=== PATIENT | female | born 1965 | race African-American/Black ===

== ENCOUNTER 2016-12-11 21:35 | Emergency (ER) | payer OTHER ==
[~2016-12-11] VITALS: Ht 152.4 cm; Wt 99.8 kg
[~2016-12-11 21:35] MED LIST: CIPR7.5D EACH EAR; FAMO-63 PO; HYDR-971 PO; NAPR500T4 PO; PRED50TA PO; TRAM-48 PO
[2016-12-11 22:00] VITALS: BP 163/83
[2016-12-11] MEDS ORDERED: HYDR25TA PO (22:10)
[2016-12-11] MEDS ORDERED: MUPI15CR TP (22:10)
--- NOTE | 2016-12-11 22:10 | PHYS DOC ---
Past Medical History Past Medical History: No Pertinent History Additional Past Medical Histor: chronic l knee pain, Past Surgical History: No Surgical History Alcohol Use: None Drug Use: None Adult General Chief Complaint Chief Complaint: INSECT BITE HPI HPI Patient is a 51 year old female who presents with insect bite to the left lower extremity that she noted today. She states she started having itching yesterday. Patient denies any fever. Review of Systems Review of Systems Constitutional: Denies fever or chills [] Musculoskeletal: Denies back pain or joint pain [] Integument: Insect bite to the left lower extremity Neurologic: Denies headache, focal weakness or sensory changes [] Current Medications Current Medications Current Medications Medications (Trade) Dose Ordered Sig/Ayesha Start Time Stop Time Status Last Admin Dose Admin Diphtheria/ Tetanus/Acell Pertussis (Boostrix) 0.5 ml ONCE ONCE 12/11/16 23:00 12/11/16 23:01 Allergies Allergies Allergies Coded Allergies Type Severity Reaction Last Updated Verified No Known Drug Allergies 05/24/14 No Physical Exam Physical Exam Constitutional: Well developed, well nourished, no acute distress, non-toxic appearance. [] Skin: Warm, dry, left lateral lower extremity with a blister approximately 2 x 2 centimeters. There is no erythema to the area. I drained the blister in the ED. Back: No tenderness, no CVA tenderness. [] Extremities: No tenderness, no cyanosis, no clubbing, ROM intact, no edema. [] Neurologic: Alert and oriented X 3, normal motor function, normal sensory function, no focal deficits noted. [] Psychologic: Affect normal, judgement normal, mood normal. [] Current Patient Data Vital Signs Vital Signs Date Time Temp Pulse Resp B/P (MAP) Pulse Ox O2 Delivery O2 Flow Rate FiO2 12/11/16 22:00 98.3 103 18 99 Room Air 98.3 EKG EKG [] Radiology/Procedures Radiology/Procedures Indication: LLE blister Procedure: The patient was positioned appropriately. Local anesthesia was N/A. An incision was then made over the apex of the lesion with an 18 gauge needle and large amount of clear material was expressed. The drainage cavity was irrigated and covered with sterile gauze. The patients tetanus status updated as needed. The patient tolerated the procedure well. Complications: none.[] Course & Med Decision Making Course & Med Decision Making Pertinent Labs and Imaging studies reviewed. (See chart for details) Patient is in the ED with insect bite to the left lower extremity that has formed a big blister. I drained the blister in the ED. She refused Tetanus. She was discharged with Bactroban cream and Atarax for itching. Follow up with her own doctor in one week. Dragon Disclaimer Dragon Disclaimer This electronic medical record was generated, in whole or in part, using a voice recognition dictation system. Departure Departure Impression: Primary Impression: Insect bite Disposition: HOME, SELF-CARE Condition: STABLE Referrals: AARON COOLEY MD (PCP) follow up in one week Patient Instructions: Insect Bite, [id number] Additional Instructions: You were seen for an insect bite to the left lower extremity. Keep the area clean and dry. Apply the cream provided as prescribed. Follow-up with your doctor in one week. Scripts Mupirocin Calcium (BACTROBAN CREAM) 15 Gm Cream..g. 1 FLORIAN TP TID, #30 GM Prov: CASI HERNANDEZ APRN 12/11/16 Hydroxyzine Hcl (HYDROXYZINE HCL) 25 Mg Tablet 1 TAB PO TID, #30 TAB Prov: CASI HERNANDEZ APRN 12/11/16 Problem Qualifiers Primary Impression: Insect bite Encounter type: initial encounter Qualified Codes: W57.XXXA - Bitten or stung by nonvenomous insect and other nonvenomous arthropods, initial encounter CASI HERNANDEZ APRN Dec 11, 2016 22:10
[2016-12-11] MEDS ORDERED: DIPHTH,PERTUSS(ACELL),TET TOX 0.5 ML DISP.SYRIN. VAX IM ONE (23:00)
== END 2016-12-11 22:34 | disposition home or self-care (01) ==
LOC: ER 21:35
DX: S80.862A Insect bite (nonvenomous), left lower leg, initial encounter (principal); G89.29 Other chronic pain; W57.XXXA Bitten or stung by nonvenomous insect and other nonvenomous arthropods, initial encounter; Y93.89 Activity, other specified; Y99.8 Other external cause status; Y92.89 Other specified places as the place of occurrence of the external cause
CPT/HCPCS: 10060; 99283-25

== ENCOUNTER 2017-07-17 23:37 | Emergency (ER) | payer OTHER ==
[2017-07-18 00:02] LABS: POC GLUCOSE 130 mg/dL (70-99)
== END 2017-07-18 00:19 | disposition home or self-care (01) ==
LOC: ER 23:37
DX: B35.4 Tinea corporis (principal); J45.909 Unspecified asthma, uncomplicated; E03.9 Hypothyroidism, unspecified; F17.210 Nicotine dependence, cigarettes, uncomplicated
CPT/HCPCS: 82962; 99283

== ENCOUNTER 2020-05-13 17:03 | Emergency (ER) | payer OTHER ==
[~2020-05-13] VITALS: Ht 162.6 cm; Wt 95.2 kg
[~2020-05-13 17:03] MED LIST changes: +FLUC150T PO; +HYDR-3164 PO; -HYDR-971 PO; +HYDR25TA PO; +MUPI15CR TP; +NAPR-514 PO; -NAPR500T4 PO; +NYST15CR TP
[2020-05-13 17:45] VITALS: BP 130/76
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
[2020-05-13] MEDS ORDERED: CYCL10TA2 PO (19:35)
[2020-05-13] MEDS ORDERED: HYDR-2761 PO (19:35)
[2020-05-13] MEDS ORDERED: CYCLOBENZAPRINE 10 MG TABLET. PO ONE (19:45)
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
== END 2020-05-13 20:01 | disposition home or self-care (01) ==
LOC: ER 17:03
DX: S29.012A Strain of muscle and tendon of back wall of thorax, initial encounter (principal); S16.1XXA Strain of muscle, fascia and tendon at neck level, initial encounter; J45.909 Unspecified asthma, uncomplicated; E03.9 Hypothyroidism, unspecified; F17.200 Nicotine dependence, unspecified, uncomplicated; V89.2XXA Person injured in unspecified motor-vehicle accident, traffic, initial encounter; Y93.89 Activity, other specified; Y92.413 State road as the place of occurrence of the external cause; Y99.8 Other external cause status
CPT/HCPCS: 72040; 72072; 81025; 99284

== ENCOUNTER 2020-05-14 10:43 | Emergency (ER) | payer OTHER ==
[~2020-05-14] VITALS: Ht 152.4 cm; Wt 98.9 kg
[~2020-05-14 10:43] MED LIST changes: +CYCL10TA2 PO; +HYDR-2761 PO
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
[2020-05-14 12:53] VITALS: BP 122/70
== END 2020-05-14 13:03 | disposition home or self-care (01) ==
LOC: ER 10:43
DX: M54.2 Cervicalgia (principal); R51.9 Headache, unspecified; G89.11 Acute pain due to trauma; J45.909 Unspecified asthma, uncomplicated; E03.9 Hypothyroidism, unspecified; F17.200 Nicotine dependence, unspecified, uncomplicated; V49.59XA Passenger injured in collision with other motor vehicles in traffic accident, initial encounter; Y92.488 Other paved roadways as the place of occurrence of the external cause; Y93.89 Activity, other specified; Y99.8 Other external cause status
CPT/HCPCS: 70450; 72125; 99285-25

== ENCOUNTER 2021-02-03 18:45 | Emergency (ER) | payer OTHER ==
[~2021-02-03] VITALS: Ht 152.4 cm; Wt 99.5 kg
[~2021-02-03 18:45] MED LIST changes: +CYCL10TA19 PO; -CYCL10TA2 PO
[2021-02-03 19:10] VITALS: BP 97/82
--- NOTE | 2021-02-03 19:56 | PHYS DOC ---
Past Medical History Past Medical History: Asthma, Hypothyroid, Other Additional Past Medical Histor: ALOPECIA, Lt knee pain, PSOARISIS Past Surgical History: No Surgical History Smoking Status: Current Every Day Smoker Alcohol Use: None Drug Use: None General Adult EDM: Chief Complaint: SKIN PROBLEM HPI: HPI: Patient is a 55 year old female who presents to the ED today complaining of chronic psoriasis to bilateral hands, she states she has had it for the last 4 years. She states it was covering 90% of her body but has been cleared slowly with the methotrexate. Patient states she is looking for something else to use on her hands. She states that cracking. She states she has previously used beclomethasone which helped but she wants something else Review of Systems: Review of Systems: Constitutional: Denies fever or chills. [] Musculoskeletal: Denies back pain or joint pain. [] Integument: Reports psoriasis on her hands Neurologic: Denies headache, focal weakness or sensory changes. [] Psychiatric: Denies depression or anxiety. [] Heart Score: C/O Chest Pain: N/A Risk Factors: Risk Factors: DM, Current or recent (<one month) smoker, HTN, HLP, family history of CAD, obesity. Risk Scores: Score 0 - 3: 2.5% MACE over next 6 weeks - Discharge Home Score 4 - 6: 20.3% MACE over next 6 weeks - Admit for Clinical Observation Score 7 - 10: 72.7% MACE over next 6 weeks - Early Invasive Strategies Allergies: Allergies: Allergies Coded Allergies Type Severity Reaction Last Updated Verified No Known Drug Allergies 05/24/14 No Physical Exam: PE: Constitutional: Well developed, well nourished, no acute distress, non-toxic appearance. [] Skin: -Monegasque female with patchy peeling skin on bilateral palms and wrist. Similar lesions noted on the elbows lesions consistent with psoriasis Back: No tenderness, no CVA tenderness. [] Extremities: No tenderness, no cyanosis, no clubbing, ROM intact, no edema. [] Neurologic: Alert and oriented X 3, normal motor function, normal sensory function, no focal deficits noted. [] Psychologic: Flat affect, tearful Current Patient Data: Vital Signs: Vital Signs Date Time Temp Pulse Resp B/P (MAP) Pulse Ox O2 Delivery O2 Flow Rate FiO2 02/03/21 19:10 98.1 88 13 97/82 (87) 94 Room Air 98.1 EKG: EKG: [] Radiology/Procedures: Radiology/Procedures: [] Course & Med Decision Making: Course & Med Decision Making Pertinent Labs and Imaging studies reviewed. (See chart for details) This is a 55-year-old female patient with chronic psoriasis currently on methotrexate presenting today complaining of hand lesions that have been present for the last 4 years. She is requesting something topical to use. Given a prescription for triamcinolone. 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 Encourage her to cont inue following up with a drying supervisor. Candy Disclaimer: Candy Disclaimer: This electronic medical record was generated, in whole or in part, using a voice recognition dictation system. Departure Departure Impression: Primary Impression: Psoriasis Disposition: 01 HOME / SELF CARE / HOMELESS Condition: STABLE Referrals: AARON COOLEY MD (PCP) follow up with your drying supervisor as soon as you can Patient Instructions: Psoriasis, [id number] Additional Instructions: You were evaluated in the emergency room for psoriasis use the [facility] ed as directed. Follow-up with your drying supervisor in the next 1 to 2 weeks Scripts Triamcinolone Acetonide (KENALOG) 100 Gm Aerosol 1 FLORIAN TP TID, #100 GM 0 Refills Apply to palms of hands and affected areas. Do not apply to the face Prov: CASI HERNANDEZ APRN 02/03/21 CASI HERNANDEZ APRN Feb 03, 2021 19:56
[2021-02-03] MEDS ORDERED: TRIA100A TP (20:01)
== END 2021-02-03 20:09 | disposition home or self-care (01) ==
LOC: ER 18:45
DX: L40.9 Psoriasis, unspecified (principal); J45.909 Unspecified asthma, uncomplicated; E03.9 Hypothyroidism, unspecified; F17.200 Nicotine dependence, unspecified, uncomplicated
CPT/HCPCS: 99283